=== PATIENT | male | born 1965 | race Caucasian/White ===

== ENCOUNTER 2019-04-26 13:56 | Emergency (ER) | payer SELFPAY ==
[~2019-04-26] VITALS: Ht 180.3 cm; Wt 108.9 kg
[2019-04-26 16:07] VITALS: BP 128/67
[2019-04-26] MEDS ORDERED: TETANUS-DIPTH-ACEL PERTUSSIS 0.5ML SYRG IM ONE (17:00)
== END 2019-04-26 18:14 | disposition home or self-care (01) ==
LOC: ER 14:00
DX: S68.111A Complete traumatic metacarpophalangeal amputation of left index finger, initial encounter (principal); W26.9XXA Contact with unspecified sharp object(s), initial encounter; Y93.89 Activity, other specified; Y92.89 Other specified places as the place of occurrence of the external cause; Y99.8 Other external cause status
CPT/HCPCS: 73140; 90471; 90715

== ENCOUNTER 2019-04-28 09:52 | Emergency (ER) | payer OTHER ==
[~2019-04-28] VITALS: Ht 180.3 cm; Wt 104.3 kg
[2019-04-28 10:45] VITALS: BP 140/80
[2019-04-28] MEDS ORDERED: BACITRACIN TOP OINT 1 UD PKG TOP ONE (11:30)
== END 2019-04-28 12:01 | disposition home or self-care (01) ==
LOC: ER 09:52
DX: S68.111A Complete traumatic metacarpophalangeal amputation of left index finger, initial encounter (principal); E11.9 Type 2 diabetes mellitus without complications; I10 Essential (primary) hypertension; X58.XXXA Exposure to other specified factors, initial encounter; Y93.89 Activity, other specified; Y99.8 Other external cause status; Y92.89 Other specified places as the place of occurrence of the external cause
CPT/HCPCS: 29130